=== PATIENT | female | born 1965 | race Caucasian/White ===

== ENCOUNTER 2020-03-02 10:45 | Outpatient (REF) | payer OTHER, SELFPAY ==
--- NOTE | 2020-03-02 | MM_ITS ---
EXAMINATION: MM SCREENING DIGITAL BREAST TOMOSYNTHESIS, BILATERAL CLINICAL INFORMATION: Screening. Asymptomatic. The lifetime risk of breast cancer based on the Tyrer-Cuzick Model is 8%. COMPARISON: Mammography: 02/25/2019, 02/19/2018 TECHNIQUE: Digital breast tomosynthesis is performed in both the craniocaudal and mediolateral oblique views along with computer-aided detection (CAD). Synthesized 2D images are generated from the tomosynthesis. FINDINGS: The breasts are almost entirely fatty (ACR BI-RADS breast composition Category a). There are no significant masses, abnormal calcifications, or other abnormalities. Background stromal markings are stable. No significant change from prior exams. MM/MM tomosynthesis screening BI IMPRESSION: No mammographic evidence of malignancy. ASSESSMENT: BI-RADS 1: Negative RECOMMENDATION: Routine annual mammography screening. This patient's information was entered into a reminder system with a target due date for their next mammogram.
== END 2020-03-02 10:46 | disposition home or self-care (01) ==
LOC: HO.MAMMO 10:45
PROVIDERS: PCP Internal Medicine; Visit Provider Internal Medicine
DX: Z12.31 Encounter for screening mammogram for malignant neoplasm of breast (principal)
CPT/HCPCS: 77063; 77067

== ENCOUNTER 2021-05-03 10:46 | Outpatient (REF) | payer OTHER, SELFPAY ==
--- NOTE | ~2021-05-03 | MM_ITS ---
EXAMINATION: MM SCREENING DIGITAL BREAST TOMOSYNTHESIS, BILATERAL CLINICAL INFORMATION: Screening. Asymptomatic. The lifetime risk of breast cancer based on the Tyrer-Cuzick Model is 8%. COMPARISON: Mammography: 03/02/2020, 02/25/2019, 02/19/2018 TECHNIQUE: Digital breast tomosynthesis is performed in both the craniocaudal and mediolateral oblique views along with computer-aided detection (CAD). Synthesized 2D images are generated from the tomosynthesis. FINDINGS: The breasts are almost entirely fatty (ACR BI-RADS breast composition Category a). There are no significant masses, abnormal calcifications, or other abnormalities. There are no significant changes from prior studies. No developing density. Background stromal markings are stable. The axilla are unremarkable. MM/MM tomosynthesis screening BI IMPRESSION: No mammographic evidence of malignancy. ASSESSMENT: BI-RADS 1: Negative RECOMMENDATION: Routine annual mammography screening. This patient's information was entered into a reminder system with a target due date for their next mammogram.
== END 2021-05-03 10:47 | disposition home or self-care (01) ==
LOC: HO.MAMMO 10:46
PROVIDERS: PCP Internal Medicine; Visit Provider Internal Medicine
DX: Z12.31 Encounter for screening mammogram for malignant neoplasm of breast (principal)
CPT/HCPCS: 77063; 77067

== ENCOUNTER 2021-12-02 13:16 | Day surgery (SDC) | payer OTHER, SELFPAY ==
[2021-11-27 13:17] VITALS: BMI 30.1
--- NOTE | 2021-11-29 13:58 | HO.ANESPROP2 ---
Documented by User: Khadijah Alex NP 11/29/21 13:59 HPI - Anesthesia Eval Consult details Narrative: 56yo F for Upper Endoscopy and Colonoscopy PMFSH Past Medical History Medical History HTN (hypertension) Surgical History Surgical History Hx of section Social History Social History Patient Tobacco Use Status: Never used Tobacco Are you DNR?: No Advance Directives: No Advance Directives Information Provided: Yes Recently lost weight without trying: No Nutrition Risks: No Nutritional Risk Meds Allergies Allergy/AdvReac Type Severity Reaction Status Date / Time No Known Allergies Allergy Verified 12/02/21 13:38 [No Known Allergies*] Home Medications Medication Instructions Recorded Confirmed Last Taken Type amlodipine 2.5 mg tablet 2.5 mg PO DAILY 11/27/21 11/27/21 12/01/21 History multivitamin with minerals 1 tab PO DAILY 11/27/21 11/27/21 11/25/21 History esomeprazole magnesium 40 mg 1 cap PO DAILY 12/02/21 12/02/21 12/02/21 History capsule,delayed release Exam Exam Date and Time: November 29, 2021 1358 Height,Weight and Vital Signs: Height 5 ft 3 in Weight 77.111 kg Assessment and Plan Assessment Anesthesia Assessment: Chart Reviewed Documented by User: Kori Gasca MD 12/02/21 15:05 [facility] Active Problems Active Problems: GERD Past Medical History Medical History HTN (hypertension) Family History Family history of problems with anesthesia: No Surgical History Surgical History Hx of section History of Problems with Anesthesia: No Social History Social History Patient Tobacco Use Status: Never used Tobacco Are you DNR?: No Advance Directives: No Advance Directives Information Provided: Yes Recently lost weight without trying: No Nutrition Risks: No Nutritional Risk Meds Allergies Allergy/AdvReac Type Severity Reaction Status Date / Time No Known Allergies Allergy Verified 12/02/21 13:38 [No Known Allergies*] Home Medications Medication Instructions Recorded Confirmed Last Taken Type amlodipine 2.5 mg tablet 2.5 mg PO DAILY 11/27/21 11/27/21 12/01/21 History multivitamin with minerals 1 tab PO DAILY 11/27/21 11/27/21 11/25/21 History esomeprazole magnesium 40 mg 1 cap PO DAILY 12/02/21 12/02/21 12/02/21 History capsule,delayed release Exam Height,Weight and Vital Signs: Height 5 ft 3 in Weight 77.111 kg Vital Signs Temp Pulse Resp BP Pulse Ox O2 Del Method 12/02/21 13:25 96.8 F 84 16 132/93 H 98 Room Air Airway Mallampati Class: II TM Dist: >3cm Neck ROM: Full Loose/Missing/Broken Teeth: No Heart: RRR Lungs: CTAB Assessment and Plan Assessment Anesthesia Assessment: Anesthesia Plan Discussed Final Anesthetic Review Family History of Problems with Anesthesia: No History of Problems with Anesthesia: No NPO: Yes ASA Class: II Final Preanesthetic Review: No Changes in Pt Med Stat, Meds/Allgs Chart Reviewed, Consent Obtained/Reviewed and Anes Risks/Benef Reviewed Patient Risk: Low Procedure Risk: Low Assessment/Block/Sedation in SS: Assess/Block/Sedation- Anesthetic Plan Anesthetic Plan: MAC: Disposition: Standard PACU
[2021-12-02 13:25] VITALS: BP 132/93; PULSE 84; RESP 16; TEMP 36; O2SAT 98
[2021-12-02] MEDS: Lactated Ringers 1,000 ML 100 ML IVCONT (13:47)
[2021-12-02 16:11] VITALS: BP 117/69; PULSE 74; RESP 13; TEMP 36.1; O2SAT 99
--- NOTE | 2021-12-02 16:22 | PM.OP ---
Brief Operative Note Date of Service: 12/02/21 Pre-op diagnosis: Cough, Globus, Screening Post-op diagnosis: other (GERD, Hiatal hernia, R/O Esophageal candidiasis, Colon polyps) Procedure: EGD with bx, Colonoscopy to the cecum with bx/removal of polyps Surgeon: Tobin Denton Anesthesia: MAC Was an Waste Disposal Plant Operator used for this Procedure?: No Estimated blood loss (mL): 2.0 Pathology: other (A. EG Junction at 35cm B. Esophagus 25-35cm, R/O Candidiasis C. Cecal polyp D. Polyp at 40cm) Condition: stable Disposition: PACU
[2021-12-02 16:26] VITALS: BP 131/78; PULSE 62; RESP 16; O2SAT 98
[2021-12-02 16:41] VITALS: BP 130/79; PULSE 58; RESP 16; O2SAT 98
[2021-12-02 16:56] VITALS: BP 138/75; PULSE 62; RESP 16; TEMP 37.1; O2SAT 98
--- NOTE | 2021-12-03 03:30 | OP_ITS ---
12/02/2021 SURGEON: Tobin Denton MD INDICATIONS: The patient presents for evaluation of colorectal cancer screening, personal history of tubular adenoma of the colon, chronic coughing and sense of globus. Full consent obtained from her for this, including risks of bleeding and perforation. PREOPERATIVE DIAGNOSIS: POSTOPERATIVE DIAGNOSIS: PROCEDURE PERFORMED: Esophagogastroduodenoscopy with biopsies, and colonoscopy to the cecum with biopsy and removal of polyps. ESTIMATED BLOOD LOSS: COMPLICATIONS: ANESTHESIA: Monitored anesthesia care. ASSISTANTS: SPECIMENS: PREOPERATIVE DIAGNOSES: Colorectal cancer screening, personal history of tubular adenoma of the colon, chronic coughing, globus. POSTOPERATIVE DIAGNOSES: Colorectal cancer screening, personal history of tubular adenoma of the colon, chronic coughing, globus, colon polyps, diverticulosis, internal hemorrhoids, hiatal hernia, rule out esophageal candidiasis, rule out Harvey's esophagus. DESCRIPTION OF PROCEDURE: The patient was placed in the left lateral decubitus position. The Olympus video gastroscope was passed in the posterior oropharynx and upper esophagus under direct vision. The scope was passed slowly to the distal esophagus. The gastroesophageal junction appeared at 35 cm. This area appeared slightly irregular consistent with reflux and possibly small, less than 1 cm areas of Harvey's mucosa. There was no esophagitis nor any lesions. However extending from this to 25 cm were whitish mucosal lesions that almost washed off completely with irrigation. There were no underlying mucosal abnormalities. The scope entered the stomach. There was a small hiatal hernia. The scope was advanced to the pylorus and the duodenum was cannulated to the descending portion. The duodenum including the bulb appeared normal without mass or ulceration. The scope was withdrawn back to the stomach. The gastric antrum and body appeared normal with good peristalsis. The scope was retroflexed visualizing the proximal stomach carefully which appeared normal, without any sign of mass or ulceration. The scope was straightened and withdrawn back to the esophagus. Biopsies were obtained at the EG junction at 35 cm. I then obtained multiple biopsies between 25 and 35 cm in the area of the whitish lesions. Again, there was no evidence of any underlying mucosal abnormalities. The scope was withdrawn from the patient. I was not able to get a very good look at the vocal cords, although there did appear to be some edema. She was turned around for the colonoscopy. The digital rectal exam revealed some external hemorrhoidal tissue. The Olympus video pediatric colonoscope was entered into the rectum and advanced easily to the cecum. Once in the cecum, I did identify normal-appearing cecal pouch other than an approximately 3 or 4 mm cecal polyp which was biopsied and completely removed with the cold biopsy forceps. The remainder of the cecum, including the appendiceal orifice, appeared normal. The ileocecal valve appeared normal. There was transillumination of light deep in the right lower quadrant. The scope was slowly withdrawn assessing all mucosal surfaces carefully. Preparation was excellent. At 40 cm was a 3 mm polyp, which was biopsied and completely removed with the cold biopsy forceps. I did not visualize any other polyps, colitis, nor angiodysplasia. There was a mild amount of sigmoid and descending colon diverticulosis. In the rectum, the scope was retroflexed visualizing internal hemorrhoids, but no other pathology. The rectal mucosa appeared normal. The scope was straightened and withdrawn from the patient. She tolerated both procedures well and was returned to the recovery area in stable condition. IMPRESSION: 1. Rule out esophageal candidiasis. 2. Hiatal hernia, rule out Harvey's esophagus. 3. Colon polyps. 4. Diverticulosis. 5. Internal and external hemorrhoids. PLAN: The results of the pathology will be checked. At this point, she has been using Nexium 40 mg daily for about 3 weeks. Depending upon the results of the biopsies, I may increase this to 40 mg b.i.d., as well as adding a course of Diflucan if indeed there is candidiasis, to see if that can help relieve some of her ongoing symptoms. I would recommend a repeat colonoscopy in 5 years. I did instruct her to obtain a referral for an ENT consult and to make sure that she has had a chest x-ray in regard to the chronic coughing. Further plans will be made depending upon the results of biopsies and her clinical course. If indeed it appears that she is having refractory reflux despite PPI therapy, then she may need further evaluation with pH studies and motility studies of the esophagus prior to considering surgery for the hiatal hernia. She will be seen in the office for a follow up visit. This has all been discussed with her . MD ZO Wild/JULIO CESAR / [id number] JESUS MANUEL
== END 2021-12-02 17:25 | disposition home or self-care (01) ==
PROVIDERS: PCP Internal Medicine; Visit Provider Internal Medicine
PROC: (CPT 45380; principal; 2021-12-02 14:40)
DX: Z12.11 Encounter for screening for malignant neoplasm of colon (principal); Z86.010 Personal history of colon polyps; D12.0 Benign neoplasm of cecum; K63.5 Polyp of colon; K57.30 Diverticulosis of large intestine without perforation or abscess without bleeding; K64.8 Other hemorrhoids; K64.4 Residual hemorrhoidal skin tags; K21.9 Gastro-esophageal reflux disease without esophagitis; B37.81 Candidal esophagitis; K44.9 Diaphragmatic hernia without obstruction or gangrene; I10 Essential (primary) hypertension; R05.3 Chronic cough; F45.8 Other somatoform disorders; Z79.899 Other long term (current) drug therapy
CPT/HCPCS: 45380; 43239; 88305; 88312

== ENCOUNTER 2022-04-15 10:40 | Outpatient (REF) | payer OTHER, SELFPAY ==
--- NOTE | ~2022-04-15 | FL_ITS ---
EXAMINATION: FL BARIUM SWALLOW CLINICAL INFORMATION: Chronic cough, globus sensation. Hiatal hernia. COMPARISON: None TECHNIQUE: Barium swallow examination is performed using fluoroscopic evaluation in addition to multiple fluoroscopic spot views. The patient is imaged both upright and prone and using both thick and thin sulfate along with effervescent granules. Fluoroscopy time: 3.2 minutes DAP: 27.063 Gy-cm2 Images: 65 FINDINGS: Following oral administration of thick barium, barium coated turkey and thin barium there is normal propagation of bolus from the oral cavity through the pharynx, esophagus into stomach without obstruction, narrowing or stricture. No intrinsic or extrinsic mass or compression seen. There is no retention of food in the valleculae or piriform sinuses. No laryngeal penetration or aspiration. On oral administration of barium coated tablet there is spontaneous passage from the oral cavity, pharynx, esophagus into stomach. On placing patient prone lying and oral administration of thin barium there is good distention of the entire esophagus without any intrinsic filling defect. There is a small hiatal hernia with [id number] gastroesophageal reflux. FL/FL barium swallow IMPRESSION: Mild gastroesophageal reflux with small hiatal hernia in lying position.
== END 2022-04-15 10:41 | disposition home or self-care (01) ==
LOC: HO.XRAY 10:40
PROVIDERS: Visit Provider Internal Medicine
DX: R05.3 Chronic cough (principal); R09.89 Other specified symptoms and signs involving the circulatory and respiratory systems; K21.9 Gastro-esophageal reflux disease without esophagitis; K44.9 Diaphragmatic hernia without obstruction or gangrene
CPT/HCPCS: 74220

== ENCOUNTER 2022-05-09 10:50 | Outpatient (REF) | payer OTHER, SELFPAY ==
--- NOTE | ~2022-05-09 | MM_ITS ---
EXAMINATION: MM SCREENING DIGITAL BREAST TOMOSYNTHESIS, BILATERAL CLINICAL INFORMATION: Screening. Asymptomatic. The lifetime risk of breast cancer based on the Tyrer-Cuzick Model is 8%. COMPARISON: Mammography: 05/03/2021, 03/02/2020, 02/25/2019 TECHNIQUE: Digital breast tomosynthesis is performed in both the craniocaudal and mediolateral oblique views along with computer-aided detection (CAD). Synthesized 2D images are generated from the tomosynthesis. FINDINGS: The breasts are almost entirely fatty (ACR BI-RADS breast composition Category a). Background stromal markings and fibroglandular densities are similar to prior studies. No developing density or architectural abnormality. There are no significant masses, abnormal calcifications, or other abnormalities. No significant changes. MM/MM tomosynthesis screening BI IMPRESSION: No mammographic evidence of malignancy. ASSESSMENT: BI-RADS 1: Negative RECOMMENDATION: Routine annual mammography screening. This patient's information was entered into a reminder system with a target due date for their next mammogram.
== END 2022-05-09 10:51 | disposition home or self-care (01) ==
LOC: HO.MAMMO 10:50
PROVIDERS: PCP Internal Medicine; Visit Provider Internal Medicine
DX: Z12.31 Encounter for screening mammogram for malignant neoplasm of breast (principal)
CPT/HCPCS: 77063; 77067

== ENCOUNTER 2023-01-02 15:03 | Outpatient (AMB) | payer OTHER, SELFPAY ==
--- NOTE | 2023-01-02 15:08 | MHC.OFFVIS ---
Intake Vital Signs 01/02/23 15:09 Height 5 ft 3 in Weight 156 lb BMI 27.6 BP 124/70 Blood Pressure Location Lt brachial Position Sitting Pulse 65 Pulse Oximetry (%) 99 Oxygen Delivery Method Room Air Intake Visit Reasons: Cough Certified Real Estate Appraiser Required: No Franchise Sales Representative: Franchise Sales Representative offered & declined Accompanied by: Self / Same As Patient Allergies chlorthalidone Allergy (Severe, Verified 01/02/23 15:15) low potassium Medication List - Last Reconciled 01/02/23 by Azalia Pratt LPN amlodipine 5 mg PO DAILY esomeprazole magnesium 20 mg PO DAILY multivitamin 1 tab PO DAILY multivitamin with minerals 1 tab PO DAILY HPI Cough HPI Details Elli is pleasant 57 year old female, never smoker, with underlying GERD. She was referred by her lunchroom operator for pulmonary evaluation. She reports ongoing symptoms for over a year of globus sensation, persistent throat clearing, chronic dry cough with occasional white sputum and post nasal drip. She denies any significant dyspnea, wheezing, chest tightness. Denies hemoptysis. She had an EGD performed 11/2021 and Barium swallow 03/2022 both revealed mild reflux and small hiatal hernia. ENT evaluation was negative for any laryngeal irritation from reflux. She states her symptoms are worse when laying down at night and with eating/drinking. She has trialed pantoprozole, esomeprazole and now on pepcid, with persistent symptoms. She denies any personal history of respiratory conditions. She is unsure of environmental allergies and has not had any allergy tests prior. She has trialed claritin with minimal improvement. She recently started ipratropium nasal spray, unsure of response yet. Her sisters have a history of asthma, otherwise denies any pertinent family history. She denies any occupational exposures. [facility] Medical History HTN (hypertension) Surgical History Hx of section Family History (Updated 01/01/23 @ 16:03 by Azalia Pratt LPN) Father Hypertension Heart disease Mother Hypertension Social History (Updated 01/02/23 @ 15:18 by Aazlia Pratt LPN) Patient Tobacco Use Status: Never used Tobacco Review of Systems Const Denies chills, Denies excessive sweating, Denies fever(s), Denies headache(s) and Denies night sweats Eyes Denies dry eyes, Denies irritation and Denies itchy eyes ENT Reports Normal hearing present, Denies headache(s), Denies nasal congestion and Denies nasal discharge Card Denies chest pain, Denies chest pain at rest, Denies chest pain with activity, Denies claudication, Denies leg edema, Denies dyspnea, Denies dyspnea on exertion, Denies orthopnea and Denies paroxysmal nocturnal dyspnea Resp Denies chest congestion, Denies pain on inspiration, Denies pain with cough, Denies dyspnea, Denies dyspnea on exertion, Denies stridor and Denies wheezing Musc Denies myalgias Neuro Reports Normal hearing present and Denies headache(s) Endo Denies excessive sweating Jeffrey/Lymph Denies lymphadenopathy Aller/Immun Denies itchy eyes, Denies seasonal rhinorrhea and Denies wheezing Physical Exam Vital Signs: Last Vital Signs Pulse 65 01/02/23 15:09 BP 124/70 01/02/23 15:09 Pulse Ox 99 01/02/23 15:09 Oxygen Delivery Method Room Air 01/02/23 15:09 BMI result Body Mass Index 27.6 Const General: cooperative, healthy appearing, comfortable, no acute distress, well developed and alert Orientation/consciousness: patient oriented x3 Limitations: no limitations HEENT Head: Yes normal to inspection, Yes normocephalic and Yes atraumatic Ears: hearing grossly normal bilaterally and external ears normal Eyes General: appearance normal, both eyes and all related structures Eyelids: Yes eyelids normal Sclerae: sclerae normal EOM: EOMs intact bilaterally Neck Neck: Yes normal visual inspection and Yes no lymphadenopathy Lymphatic: no lymphadenopathy noted Chest Chest palpation & inspection: normal inspection of the chest Resp Other: persistent dry cough throughout visit with lung sounds diminished, improved after duoneb Effort & Inspection: normal respiratory effort, able to speak in complete sentences, no audible wheezes, no stridor, not tachypneic, no tripod positioning and no use of accessory muscles Cardio Jugular venous distension: no JVD Rate: regular rate Rhythm: regular rhythm Skin Other: warm, dry General skin exam: no rashes or lesions noted Neuro General: patient oriented x3 Cranial nerves: Yes Normal hearing present Cognition (Neuro): normal cognition Gait exam (Neuro): Normal gait present Extrem General: Yes normal to inspection, Yes capillary refill normal, Yes no clubbing, cyanosis or edema and Yes no pedal edema Psych Appearance: grossly normal and well kempt Speech and movement: Normal speech and movement present and Clear speech present Affect: normal affect Attitude: cooperative Thought process: Normal thought process present Thought content: Normal thought content present Insight: Good insight present (Psych) Judgement: Good judgement present (Psych) Office Procedures Nebulizer Treatment Nebulizer Treatment 14315-[id number]/MDI RX initial, or Nebulizer Subsequent Treatment Office Meds albuterol sulfate 2.5 mg/3 mL (0.083 %) solution for nebulization Performing Provider: Ele Valdez NP Performing Location: [facility] Administered by: Azalia Pratt LPN on 01/02/23 15:59 Dose Route Admin Location Dispensed Lot Number Expiration Date [facility] [employer] 2.5 mg inhalation 3 mL [id number] 02/13/24 3273-3738-28 [facility] Assessment & Plan Assessment & Plan (1) Cough: Code(s): R05.9 - Cough, unspecified (2) Globus sensation: Code(s): R09.A2 - Foreign body sensation, throat (3) GERD (gastroesophageal reflux disease): Code(s): K21.9 - Gastro-esophageal reflux disease without esophagitis Plan Elli's symptoms may be multifactorial with contribution from pulmonary and allergic etiologies as well as acid reflux. She was given a nebulizer treatment in office with improvements in cough, suggestive of a possible reactive airway component. Will send for PFT, CXR and RAST to thoroughly evaluate. Discussed empirically trialing an ICS/LABA. Reviewed importance of oral hygiene. Will follow up in 4-6 weeks to review results and response to inhaler. All questions were answered and patient is in agreement of plan. Orders: Orders AMB Nebulizer Treatment 01/02/23 R05.9 - Cough, unspecified PFT pulmonary function test 01/07/23 R05.9 - Cough, unspecified Medications: New fluticasone propion-salmeterol 115-21 mcg/actuation (Advair HFA) 2 puffs inhalation Q12H 1 ea 0RF Coding Level of Care Code New Pt Level 4 (97783) Diagnoses Cough R05.9 Globus sensation R09.A2 GERD (gastroesophageal reflux disease) K21.9 CPT Codes Nebulizer Treatment - Nebulizer Treatment, initial or subsequent: [id number]/MDI RX initial, or Nebulizer Subsequent Treatment ([id number])
[2023-01-02 15:09] VITALS: BP 124/70; PULSE 65; O2SAT 99; BMI 27.6
== END 2023-01-02 16:11 | disposition home or self-care (01) ==
LOC: HO.HPSW 15:03
PROVIDERS: PCP Physician Assistant; Referring Provider Internal Medicine; Visit Provider Nurse Practitioner Family
DX: R05.9 Cough, unspecified (principal); R09.A2 Foreign body sensation, throat; K21.9 Gastro-esophageal reflux disease without esophagitis
CPT/HCPCS: 99204

== ENCOUNTER → 2023-01-02 15:03 | Outpatient (BNVA) | payer OTHER, SELFPAY | PROVIDERS: PCP Physician Assistant; Referring Provider Internal Medicine; Visit Provider Nurse Practitioner Family | DX: R05.9 Cough, unspecified (principal); R09.A2 Foreign body sensation, throat; K21.9 Gastro-esophageal reflux disease without esophagitis | CPT/HCPCS: 94640 ==

== ENCOUNTER 2023-01-16 11:29 | Outpatient (REF) | payer OTHER, SELFPAY ==
[2023-01-16 14:42] LABS: MANUAL DIFF FLAG NO
[2023-01-16 14:46] LABS: Basophils Absolute Auto 0.1 X10*3/uL (0.0-0.2); Basophils Percent Auto 1.5 % (0-2); Eosinophils Absolute Auto 0.2 X10*3/uL (0.0-0.4); Hematocrit 41.4 % (37.0-47.0); Hemoglobin 13.9 g/dl (12.0-16.0); Imm Gran Abs Auto 0.02 X10*3/uL (0.00-0.03); Imm Gran Pct Auto 0.4 % (0.0-0.4); Lymphocytes Absolute Auto 1.8 X10*3/uL (1.2-4.9); Lymphocytes Percent Auto 38.9 % (20-40); Mean Corpuscular HGB Conc 33.6 g/dl (31.0-35.0); Mean Corpuscular Hemoglobin 30.3 pg (27.0-33.0); Mean Corpuscular Volume 90.4 fL (80.0-98.0); Mean Platelet Volume 8.9 fL (9.4-12.3); Monocytes Absolute Auto 0.4 X10*3/uL (0.1-1.2); Monocytes Percent Auto 7.7 % (2-11); Neutrophils Absolute Auto 2.1 x10*3/uL (2.0-8.3); Neutrophils Percent Auto 47.5 % (45-73); Platelet Count 243 X10*3/uL (160-400); Red Blood Count 4.58 X10*6/uL (4.20-5.50); Red Cell Distribution Width 12.2 % (11.0-16.0); White Blood Count 4.5 X10*3/uL (4.8-10.8)
== END 2023-01-16 11:30 | disposition home or self-care (01) ==
LOC: HO.WFDLDS 11:29
PROVIDERS: Visit Provider Nurse Practitioner Family
DX: R05.9 Cough, unspecified (principal); Z91.09 Other allergy status, other than to drugs and biological substances
CPT/HCPCS: 36415; 82785; 85025; 86003

== ENCOUNTER 2023-02-24 08:52 | Outpatient (REF) | payer OTHER, SELFPAY ==
--- NOTE | ~2023-02-24 | XR_ITS ---
EXAMINATION: XR CHEST CLINICAL INFORMATION: Cough, unspecified. COMPARISON: None TECHNIQUE: 2 views of the chest. FINDINGS: Lines and Tubes: None. Clear lungs. No pleural effusion. No pneumothorax. Normal cardiomediastinal silhouette. XR/XR chest 2V IMPRESSION: *Clear lungs.
== END 2023-02-24 08:53 | disposition home or self-care (01) ==
LOC: HO.XRAY 08:52
PROVIDERS: Visit Provider Nurse Practitioner Family
DX: R05.9 Cough, unspecified (principal)
CPT/HCPCS: 71046

== ENCOUNTER 2023-02-26 15:50 | Outpatient (REF) | payer OTHER, SELFPAY ==
--- NOTE | 2023-02-26 16:30 | PFT_ITS ---
Flows: FEV1: 101 % of predicted at 2.57 L FVC: 93 % of predicted at 3.13 L FEV1/FVC: 82 % Bronchodilator response: Present in small to medium airways only Volumes: Total lung capacity: 112 % of predicted at 5.55 L Residual volume: 133 % of predicted at 2.19 L Slow vital capacity: 101 % of predicted at 3.36 L Expiratory reserve volume: 45 % of predicted at 0.37 L Diffusion capacity: Mildly decreased, corrects to normal after adjustment for alveolar ventilation. Impression: No obstructive or restrictive ventilatory defect. Increased residual volume suggests air trapping. Decreased expiratory reserve volume suggests extrathoracic restriction likely secondary to abdominal obesity. MTDD
== END 2023-02-26 15:51 | disposition home or self-care (01) ==
LOC: HO.RESP 15:50
PROVIDERS: PCP Physician Assistant; Visit Provider Nurse Practitioner Family
DX: R05.9 Cough, unspecified (principal)
CPT/HCPCS: 94010; 94727; 94729

== ENCOUNTER → 2023-02-26 16:30 | Outpatient (BNV) | payer OTHER, SELFPAY | PROVIDERS: PCP Physician Assistant; Visit Provider Internal Medicine Pulmonary Disease | DX: R05.9 Cough, unspecified (principal) | CPT/HCPCS: 94060; 94727; 94729 ==

== ENCOUNTER 2023-05-15 10:51 | Outpatient (REF) | payer OTHER, SELFPAY | END 2023-05-15 10:52 | disposition home or self-care (01) | LOC: HO.MAMMO 10:51 | PROVIDERS: PCP Physician Assistant; Visit Provider Internal Medicine | DX: Z12.31 Encounter for screening mammogram for malignant neoplasm of breast (principal) | CPT/HCPCS: 77063; 77067 ==

== ENCOUNTER → 2023-05-15 11:00 | Outpatient (BNV) | payer OTHER, SELFPAY | PROVIDERS: PCP Physician Assistant; Visit Provider Radiology Diagnostic Radiology | DX: Z12.31 Encounter for screening mammogram for malignant neoplasm of breast (principal) | CPT/HCPCS: 77063; 77067 ==

== ENCOUNTER 2024-05-20 11:43 | Outpatient (REF) | payer BC, SELFPAY ==
--- OUTSIDE RECORDS SUMMARY | 2024-05-20 13:39 | XMS_ITS ---
Author Organization [facility] Address [address] [place] [id number] Care Team Providers Care Telephone Operator Chief Name Role Phone Mery Blakely Primary Care Provider Unav ailTobin Mota [phone] REASON FOR VISIT Patient presents today for acid reflux Encounters Encounter Location Date Provider Diagnosis [facility] [address] [place] [id number] 04/24/2023 Tobin Denton Plan Of Treatment No Information Progress Notes * ANTONIO ABRAMSLOB: 4 (59 yo F)Acc No.[id number]:04/24/2023 Progress Notes Patient:KAUSHAL VERONICA Provider:?Tobin Denton MD :[id number]???Age:58 Y???Sex:Female D ate:04/24/2023 Address:[address] , [id number] Pcp:Lindsay Jensen Subjective: * Chief Complaints: * ???1. Patient presents today for acid reflux. * Medical History:? Objective: * Vitals:? Assessment: Plan: * Treatment: * * The named appointment provid er may or may not be the originator of this progress note, and it is not deemed complete until electronically signed by the appointment provider. Sign off status: Pending * Provider:?Tobin Denton MD Date:? 024 Generated for Martell felix/Chris/eTransmitting on:?05/20/2024 01:38 PM EST
--- OUTSIDE RECORDS SUMMARY | 2024-05-20 13:39 | XMS_ITS ---
Author Organization [facility] Address [address] [place] [id number] Care Team Providers Care Employee Relation Manager Name Role Phone Mery Blakely Primary Care Provider Unav ailable Tobin Denton Unavailable [phone] REASON FOR VISIT Patient presents today for reflux Problems Problem Type SNOMED Code ICD Code Onset Dates Problem Status W/U Status Risk Notes Problem 037996993 Abdominal bloating (R14.0) Active confirmed Problem 164483137 Globus sensation (R09.A2) Active confirmed Problem 31566886 Constipation, unspecified constipation type (K59.00) Active confirmed Encounters Encounter Location Date Provider Diagnosis [facility] [address] [place] [phone] 02/13/2023 Tobin Denton Abdominal bloating R 14.0 ; Gastroesophageal reflux disease without esophagitis K21.9 ; Chronic cough R05.3 ; Globus sensation R09.A2 and Constipation, unspecified constipation type K59.00 Assessments Encounter Date Diagnosis (ICD Code) Assessment Notes Treatment Notes Treatment Clinical Notes Section Notes 02/13/2023 Abdominal bloating (ICD-10 - R14.0) 02/13/2023 Gastroesophageal reflux disease without esophagitis (ICD-10 - K21.9) Stop Esomeprazole and we will start a high dose Pepcid(Famotidin e) Rx. for the heartburn and to see if that decreases some of the bloating and gassiness. Resume Esopmepraozle if the Famotidine isn't working for the heartburn. 02/13/2023 Chronic cough (ICD-10 - R05.3) I want you to see [facility] for the cough, shortness of breath, etc 02/13/2023 Globus sensation (ICD-10 - R09.A2) 02/13/2023 Constipation, unspecified constipation type (ICD-10 - K59.00) Start a daily probiotic, continue the Metamucil,and add a dose of Miralax daily to help with the BM's to see if that cuts down the bloating and makes the BM's more regular. Plan Of Treatment Treatment Notes Assessment Notes Gastroesophageal reflux dise ase without esophagitis Stop Esomeprazole and we will start a high dose Pepcid(Famotidine) Rx. for the heartburn and to see if that decreases some of the bloating and gassiness. Resume Esopmepraozle if the Famotidine isn't working for the heartburn. Chronic cough I want you to see [facility] for the cough, shortness of breath, etc Constipation, unspecified constipation t ype Start a daily probiotic, continue the Metamucil,and add a dose of Miralax daily to help with the BM's to see if that cuts down the bloating and makes the BM's more regular. Next Appt Details Follow Up: 3 Months, Reason: Progress Notes * ANGELINA ABRAMSNISHANT: 4 (59 yo F)Acc No.[id number]:02/13/2023 Progress Notes Patient:?KAUSHAL ABRAMS Provider:?Tobin Denton MD :1965???Age:58 Y???Sex:Female D ate:02/13/2023 Address:[address] [place] [address] , [place] Pcp:Lindsay Jensen Subjective: * Chief Complaints: * ???1. Patient presents today for reflux. * Medical History:? Objective: * Vitals:? Assessment: * Assessment: 1.?Abdominal bloating - R14. 0 (Primary)???2.?Gastroesophageal reflux disease without esophagitis - K21.9???3.?Chronic cough - R05.3???4.?Globus sensation - R09.A2???5.?Constipation, unspecified constipation type - K59.00??? Plan: * Treatment: 2.?Chronic cough? Notes: I want you to see [facility] for the cough, shortness of breath, etc?? 3.?Constipation, unspecified constipation type? Notes: Start a daily probiotic, continue the Metamucil,and add a dose of Miralax daily to help with the BM's to see if that cuts down the bloating and makes the BM's more regular.?? * Follow Up:?3 Months * * The named appointment provid er may or may not be the originator of this progress note, and it is not deemed complete until electronically signed by the appointment provider. Sign off status: Pending * Provider:?Tobin Denton MD Date:? 023 Generated for Martell felix/Chris/Willy on:?05/20/2024 01:38 PM EST
--- OUTSIDE RECORDS SUMMARY | 2024-05-20 13:39 | XMS_ITS | Patient Health Record ---
Author Organization [facility] Address [address] [place] [address] Care Team Providers Care Assistant Plant Controller Name Role Phone Mery Blakely Primary Care Provider Unav ailable Tobin Denton Unavailable [phone] Allergies No Known Allergies Reason For Referral No Information Medications Medication SIG (Take, Route, Frequency, Duration) Notes Start Date End Date Status Vitamin E Active Multi Vitamin/Minerals Orally Active amLODIPine Besylate 2.5 MG Oral for 90 Active Esomeprazole Magnesium 20 MG TAKE ONE CAPSULE BY MOUTH EVERY DAY Oral Active Immunizations Vaccine Route Administration Date Status Comme nts Influenza Unknown 01/14/2021 Administered Influenza Unknown 01/01/2022 Administered Problems Problem Type SNOMED Code ICD Code Onset Dates Problem Status W/U Status Risk Notes Problem [id number] Encounter for screening for malignant neoplasm of colon (Z12.11) Active confirmed Problem 673504248 Abdominal bloati ng (R14.0) Active confirmed Problem History of polyp of colon (situation) (297565167) Personal history of colonic polyps (Z86.010) Active confirmed Problem Screening for malignant neoplasm of rectum (607741812) Encounter for screening for malignant neoplasm of rectum (Z12.12) Active confirmed Problem History of gastrointestinal disease (993849201) H/O gastroesophageal reflux (GERD) (Z87.19) Active confirmed Problem 410122522 Gastroesophageal reflux disease without esophagitis (K21.9) Active confirmed Problem 19414945 Preprocedural examination (Z01.818) Active confirmed Problem 38750755 Hiatal hernia (K44.9) Active confirmed Problem 31108903 Constipation, unspecified constipation type (K59.00) Active confirmed Problem Gastroesophageal reflux disease (114252924) GERD (gastroesophageal reflux disease) (K21.9) Active confirmed Problem 705444748 Abdominal pain, generalized (R10.84) Active confirmed Problem 98551300 Abdominal pain, lower (R10.30) Active confirmed Problem Globus sensation (639846231) Globus sensation (F45.8) Active confirmed Problem Diverticulosis of colon (229738502) Diverticulosis of colon (K57.30) Active confirmed Problem 441121639 Globus sensation (R09.89) Active confirmed Problem 32597221 Chronic cough (R05.3) Active confirmed Problem Candidiasis of the esophagus (04380545) Teresa esophagitis (B37.81) Active confirmed Problem 196528607 Globus sensation (R09.A2) Active confirmed Vital Signs Blood pressure diastolic 00 mm Hg 08/28/2023 Height 63 in 08/28/2023 Blood pressure systolic 00 mm Hg 08/28/2023 Weight 157 lbs 08/28/2023 BMI 27.81 kg/m2 08/28/2023 Encounters Encounter Location Date Provider Diagnosis [facility] [address] [place] [address] 08/28/2023 Tobin Denton Personal history of colonic polyps Z86.010 ; GERD (gastroesophageal reflux disease) K21.9 ; Globus sensation F45.8 and Chronic cough R05.3 Assessments Encounter Date Diagnosis (ICD Code) Assessment Notes Treatment Notes Treatment Clinical Notes Section Notes 08/28/2023 Personal history of colonic polyps (ICD-10 - Z86.010) Repeat colonoscopy in 2026 Overall, Tenisha continues to appear quite well from a clinical standpoint. While her continued symptoms of the coughing and globus sensation remain problematic from a symptomatic standpoint, we did review that there does not appear to be any worrisome underlying process causing this. While some of the symptoms might be in relation to her reflux, I don't think that is the main contributing factor based on just a minimal hiatal hernia, symptomatic improvement on her PPI in relation to the heartburn, and the upper endoscopy and barium swallow not revealing any significant pathology in the esophagus or upper GI tract in general. I did advise her to certainly continue her PPI as it is working well for the heartburn symptoms. I don't think another upper endoscopy would be helpful given the results from 2021. She was treated for some yeast in the esophagus after that endoscopy but that did not improve any of her symptoms. I suspect that was more of a colonization with Teresa as opposed to an actual infection. Given her history of waking up frequently at night with coughing I did advise her to speak with you about possibly having a sleep study to rule out underlying sleep apnea that might be contributing to her symptoms. We also reviewed that obviously weight loss and eating carefully with dietary discretion could make a difference for her as well. We did review that stress could very well be contributing to this as she gives a history of her symptoms completely resolving when she is on any type of vacation. We did review that she should have a followup colonoscopy for surveillance in 2026. At this point, if things remain stable, I advised Tenisha to see me on p.r.n. basis. Both she and I don't think she needs any further evaluation or treatment, other than perhaps considering a sleep study to rule out any contributing sleep apnea. Hopefully, if things remain well, I will see her in 2026 for the next colonoscopy. However, I did advise her to certainly call if she has any problems or questions I can be of assistance with in the interim. Tenisha was comfortable with this plan. Thank you again for allowing me to participate in Tenisha's care. I shall continue to keep you advised of her progress. 08/28/2023 GERD (gastroesopha geal reflux disease) (ICD-10 - K21.9) Overall, Tenisha continues to appear quite well from a clinical standpoint. While her continued symptoms of the coughing and globus sensation remain problematic from a symptomatic standpoint, we did review that there does not appear to be any worrisome underlying process causing this. While some of the symptoms might be in relation to her reflux, I don't think that is the main contributing factor based on just a minimal hiatal hernia, symptomatic improvement on her PPI in relation to the heartburn, and the upper endoscopy and barium swallow not revealing any significant pathology in the esophagus or upper GI tract in general. I did advise her to certainly continue her PPI as it is working well for the heartburn symptoms. I don't think another upper endoscopy would be helpful given the results from 2021. She was treated for some yeast in the esophagus after that endoscopy but that did not improve any of her symptoms. I suspect that was more of a colonization with Teresa as opposed to an actual infection. Given her history of waking up frequently at night with coughing I did advise her to speak with you about possibly having a sleep study to rule out underlying sleep apnea that might be contributing to her symptoms. We also reviewed that obviously weight loss and eating carefully with dietary discretion could make a difference for her as well. We did review that stress could very well be contributing to this as she gives a history of her symptoms completely resolving when she is on any type of vacation. We did review that she should have a followup colonoscopy for surveillance in 2026. At this point, if things remain stable, I advised Tenisha to see me on p.r.n. basis. Both she and I don't think she needs any further evaluation or treatment, other than perhaps considering a sleep study to rule out any contributing sleep apnea. Hopefully, if things remain well, I will see her in 2026 for the next colonoscopy. However, I did advise her to certainly call if she has any problems or questions I can be of assistance with in the interim. Tenisha was comfortable with this plan. Thank you again for allowing me to participate in Tenisha's care. I shall continue to keep you advised of her progress. 08/28/2023 Globus sensation (ICD-10 - F45.8) Overall, Tenisha continues to appear quite well from a clinical standpoint. While her continued symptoms of the coughing and globus sensation remain problematic from a symptomatic standpoint, we did review that there does not appear to be any worrisome underlying process causing this. While some of the symptoms might be in relation to her reflux, I don't think that is the main contributing factor based on just a minimal hiatal hernia, symptomatic improvement on her PPI in relation to the heartburn, and the upper endoscopy and barium swallow not revealing any significant pathology in the esophagus or upper GI tract in general. I did advise her to certainly continue her PPI as it is working well for the heartburn symptoms. I don't think another upper endoscopy would be helpful given the results from 2021. She was treated for some yeast in the esophagus after that endoscopy but that did not improve any of her symptoms. I suspect that was more of a colonization with Teresa as opposed to an actual infection. Given her history of waking up frequently at night with coughing I did advise her to speak with you about possibly having a sleep study to rule out underlying sleep apnea that might be contributing to her symptoms. We also reviewed that obviously weight loss and eating carefully with dietary discretion could make a difference for her as well. We did review that stress could very well be contributing to this as she gives a history of her symptoms completely resolving when she is on any type of vacation. We did review that she should have a followup colonoscopy for surveillance in 2026. At this point, if things remain stable, I advised Tenisha to see me on p.r.n. basis. Both she and I don't think she needs any further evaluation or treatment, other than perhaps considering a sleep study to rule out any contributing sleep apnea. Hopefully, if things remain well, I will see her in 2026 for the next colonoscopy. However, I did advise her to certainly call if she has any problems or questions I can be of assistance with in the interim. Tenisha was comfortable with this plan. Thank you again for allowing me to participate in Tenisha's care. I shall continue to keep you advised of her progress. 08/28/2023 Chronic cough (ICD-10 - R05.3) Speak with your PCP or Dr. Ybarra about a possible sleep study. Overall, Tenisha continues to appear quite well from a clinical standpoint. While her continued symptoms of the coughing and globus sensation remain problematic from a symptomatic standpoint, we did review that there does not appear to be any worrisome underlying process causing this. While some of the symptoms might be in relation to her reflux, I don't think that is the main contributing factor based on just a minimal hiatal hernia, symptomatic improvement on her PPI in relation to the heartburn, and the upper endoscopy and barium swallow not revealing any significant pathology in the esophagus or upper GI tract in general. I did advise her to certainly continue her PPI as it is working well for the heartburn symptoms. I don't think another upper endoscopy would be helpful given the results from 2021. She was treated for some yeast in the esophagus after that endoscopy but that did not improve any of her symptoms. I suspect that was more of a colonization with Teresa as opposed to an actual infection. Given her history of waking up frequently at night with coughing I did advise her to speak with you about possibly having a sleep study to rule out underlying sleep apnea that might be contributing to her symptoms. We also reviewed that obviously weight loss and eating carefully with dietary discretion could make a difference for her as well. We did review that stress could very well be contributing to this as she gives a history of her symptoms completely resolving when she is on any type of vacation. We did review that she should have a followup colonoscopy for surveillance in 2026. At this point, if things remain stable, I advised Tenisha to see me on p.r.n. basis. Both she and I don't think she needs any further evaluation or treatment, other than perhaps considering a sleep study to rule out any contributing sleep apnea. Hopefully, if things remain well, I will see her in 2026 for the next colonoscopy. However, I did advise her to certainly call if she has any problems or questions I can be of assistance with in the interim. Tenisha was comfortable with this plan. Thank you again for allowing me to participate in Tenisha's care. I shall continue to keep you advised of her progress. Plan Of Treatment Pending Test Test Name Order Date LIVER PROFILE 12/18/2022 CRP 12/18/2022 CBC w DIFF 12/18/2022 SED RATE (ESR) 12/18/2022 CELIAC PANEL #10 12/18/2022 XR BARIUM SWALLOW-ESOPHAGUS 04/11/2022 TSH reflex Free T4 12/18/2022 US abdomen complete 12/18/2022 US pelvic complete 12/18/2022 Future Test Test Name Order Date COLONOSCOPY 07/18/2015 UPPER GI ENDOSCOPY 09/06/2021 COLONOSCOPY 09/06/2021 Insurance Providers Payer Name Payer Address Payer Phone Subscriber Number Group Number Insured Name Patient Relationship to Insured Coverage Start Date Coverage End Date [facility] [address] [place] [phone] [id number] JOSE ALBERTO KAUSHAL Self - patient is the insured Medical (General) History Medical History History ICD Code Denies [place],DM,CVA,Lung disease,renal dise ase HTN Screening colonoscopies in and in November of 2021 with removal of a small tubular adenoma on each occasion EGD in November of 2021--sm all hiatal hernia, esophageal candidiasis, and mild reflux with biopsies negative for Harvey's esophagus. The candidiasis was treated with a course of Diflucan but without any improvement in her symptoms. Chronic globus, coughing, an d throat clearing in 2021 and 2022---seen by Dr. Dubois-negative fiberoptic exam of the oropharynx in his office. Seen by pulmonology and they did not think her coughing was in relation to any underlying pulmonary disease based on their workup. Surgical History Surgery Date(Month/Year) 2001
--- OUTSIDE RECORDS SUMMARY | 2024-05-20 13:39 | XMS_ITS ---
Author Organization [facility] Address [address] [place] [phone] Care Team Providers Care Copy Editor Name Role Phone Mery Blakely Primary Care Provider Unav ailable Tobin Denton Brady [phone] Allergies No Known Allergies REASON FOR VISIT Patient presents today for acid reflux Medications Medication SIG (Take, Route, Frequency, Duration) Notes Start Date End Date Status Vitamin E Active Multi Vitamin/Minerals Orally Active amLODIPine Besylate 2.5 MG Oral for 90 Active Esomeprazole Magnesium 20 MG TAKE ONE CAPSULE BY MOUTH EVERY DAY Oral Active Vital Signs Blood pressure systolic 00 mm Hg 08/28/19 24 Blood pressure diastolic 00 mm Hg 024 Height 63 in 08/28/2023 Weight 157 lbs 08/28/2023 BMI 27.81 kg/m2 08/28/2023 Encounters Encounter Location Date Provider Diagnosis [facility] [address] [place] [phone] 08/28/2023 Tobin Denton Personal history of colonic [...] advised of her progress. Plan Of Treatment Medication Medication Name Sig Start Date Stop Date Notes Esomeprazole Magnesium 20 MG TAKE ONE CA PSULE BY MOUTH EVERY DAY Oral Treatment Notes Assessment Notes Personal history of colonic polyps Repea t colonoscopy in 2026 Chronic cough Speak with your PCP or Dr. Ybarra about a possible sleep study. Next Appt Details Follow Up: prn, Reason: Progress Notes * ANTONIO ABRAMSADOB: 4 (58 yo F)Acc No.[id number]:08/28/2023 Progress Notes Patient:?KAUSHAL ABRAMS Provider:?Tobin Denton MD :1965???Age:58 Y???Sex:Female D ate:08/28/2023 Address:[address] [place] [address] , [facility], [id number] Pcp:Lindsay Jensen Subjective: * Chief Complaints: * ???Patient presents today fo r acid reflux * HPI: ???incontinence:? I saw Tenisha in followup today in order to her chronic gastroesophageal reflux, chronic coughing and globus sensation, constipation, personal history of tubular adenomas of the colon, and discussion of colorectal cancer screening. ?Since I last saw Tenisha in December of 2022 she reports that things have been status quo in regard to her chronic GI complaints. When I saw her in December we did switch her from her PPI to a course of Pepcid to see if that would help cut down her bloating. However, she had to go back on her PPI due to increased reflux and heartburn symptoms. She doesn't think being on the H2 dominic instead of the PPI made much of a difference for her in regard to her bloating and abdominal discomfort. She is presently using one Esomeprazole daily with good relief of her heartburn symptoms at this point. She denies any anorexia, dysphagia, early satiety, nausea, or vomiting. Her bowel movements remain somewhat irregular but she denies any signs of bleeding. She denies any significant abdominal pain, jaundice, nor has there been any weight loss since she was here in December. ?Her main issue remains that of her coughing, particularly at night that wakes her up a lot. She was seen by the building maintenance repairer at [facility]. She describes a workup with pulmonary function studies, allergy testing, and chest x-ray that thus far have been nonrevealing. She has also been seen by her ENT physician who she reports does not have any definitive thoughts regarding the coughing either. ?She does describe waking up frequently at night due to the coughing. She describes that she drinks a lot of water during the day to help with her mucous such that she doesn't have to cough. She has tried some [id number]-[id number] allergy medicine but without improvement. ?She did have an abdominal and pelvic ultrasound in December for evaluation of her abdominal bloating and the studies did not reveal any significant or worrisome findings. The studies did reveal a fatty liver and some benign and stable ovarian cysts. She also had a barium swallow which revealed only some mild reflux and a small hiatal hernia, but no sign of any Zenker's diverticulum or any other problems that would account for her coughing. There was no sign of any aspiration. ?Interestingly, Tenisha does describe that her symptoms, including the coughing and sleep disturbances, completely resolve when she is on any type of vacation wether it be at home or away. She does think that stress plays a role in her symptoms. * ROS:?General/Constitutional:?Change in appetite?denies.?Chills?denies.?Fatigue?denies.?Ophthalmologic:?Comments?all negative.?ENT:?Comments?all negative.?Respiratory:?hemoptysis?denies.?Cough?admits.?Cardiovascular:?Chest pain?denies.?Orthopnea?denies.?Gastrointestinal:?Comments?See HPI for details.?Genitourinary:?Hematuria?denies.?Dysuria?denies.?Musculoskeletal:?Painful joints?denies.?Weakness?denies.?Skin:?Itching?denies.?Rash?denies.?Neurologic:?Headache?denies.?Seizures?denies.?Psychiatric:?Comments?all negative.? * Medical History:? * Surgical History:? 2002 * Hospitalization/Major Diagno stic Procedure:?No Hospitalization History. * Family History:?Father: dece ased, diagnosed with HTN (hypertension), Heart disease.?Mother: , diagnosed with HTN (hypertension).? No family history of colorectal cancer. * Social History:?Tobacco Use:?Tobacco Use/Smoking?Are you a: nonsmoker.?Drugs/Alcohol:?Alcohol Screen?Points: 2, Interpretation: Negative.?Miscellaneous:?Marital status: . 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 ???Nonsmoker. No significant alcohol intake. * Medications:?TakingVitamin E Multi Vitamin/Minerals Tablet Orally amLODIPine Besylate 2.5 MG Tablet Oral Esomeprazole Magnesium 20 MG Capsule Delayed Release TAKE ONE CAPSULE BY MOUTH EVERY DAY Oral Taking Vitamin E Taking Multi Vitamin/Minerals Tablet Orally Taking amLODIPine Besylate 2.5 MG Tablet Oral Taking Esomeprazole Magnesium 20 MG Capsule Delayed Release TAKE ONE CAPSULE BY MOUTH EVERY DAY Oral DiscontinuedFamotidine 40 MG Tablet 1 Orally Twice a dayMedication List reviewed and reconciled with the patientDiscontinued Famotidine 40 MG Tablet 1 Orally Twice a dayMedication List reviewed and reconciled with the patient * Allergies:?N.K.D.A.yes[Aller gies Verified] Objective: * Vitals:?Wt: 157 lbs, Ht: 63 in, BMI:27.81 Index, BP: 00/00 mm Hg. * Examination: ???General Examination: ?GENERAL APPEARANCE:?pleasant, well nourished, well developed, in no acute distress.?EYES:?sclera non-icteric.?ORAL CAVITY:?mucosa moist.?NECK/THYROID:?no cervical lymphadenopathy, neck supple.?SKIN:?nonjaundiced, no spider angiomata.?HEART:?S1, S2 normal.?LUNGS:?clear to auscultation bilaterally.?ABDOMEN:?normal bowel sounds, no guarding or rigidity, no guarding or rigidity, no masses palpable, soft, nontender, nondistended.?EXTREMITIES:?no edema.?NEUROLOGIC:?alert and oriented.? Assessment: * Assessment: 1.?GERD (gastroesophageal re flux disease) - K21.9 (Primary)?2.?Personal history of colonic polyps - Z86.010?3.?Globus sensation - F45.8?4.?Chronic cough - R05.3? Overall, Tenisha continues to appear quite well [...] to keep you advised of her progress. Plan: * Treatment: 2.?Chronic cough? Notes: Speak with your PCP or Dr. Ybarra about a possible sleep study.?? 3.?Others? Continue Esomeprazole Magnesium Capsule Delayed Release, 20 MG, TAKE ONE CAPSULE BY MOUTH EVERY DAY, Oral.?? * Procedure Codes:?3017F COLOR ECTAL CA SCREEN DOC [id number] TOBACCO [id number] DOC RSN FOR NOT SCREEN/REC F/U HBP * Preventive Medicine:? ??Counseling:?Care goal follow-up plan:?Above Normal BMI Follow-up?Giving encouragement to exercise,?BMI management provided?Yes.? * Follow Up:?prn * * Sign off status: Completed true * Provider:?Tobin Denton MD Date:? 024 Generated for Auryi isidro/Chris/eTransmitting on:?05/20/2024 01:38 PM EST History and Physical Notes * HPI (History of Present Illness) Category Sub-Category Detail Notes Category Not es incontinence I saw Tenisha in followup today in order to her chronic gastroesophageal reflux, chronic coughing and globus sensation, constipation, personal history of tubular adenomas of the colon, and discussion of colorectal cancer screening. Since I last saw Tenisha in December of 2022 she reports that things have been status quo in regard to her chronic GI complaints. When I saw her in December we did switch her from her PPI to a course of Pepcid to see if that would help cut down her bloating. However, she had to go back on her PPI due to increased reflux and heartburn symptoms. She doesn't think being on the H2 dominic instead of the PPI made much of a difference for her in regard to her bloating and abdominal discomfort. She is presently using one Esomeprazole daily with good relief of her heartburn symptoms at this point. She denies any anorexia, dysphagia, early satiety, nausea, or vomiting. Her bowel movements remain somewhat irregular but she denies any signs of bleeding. She denies any significant abdominal pain, jaundice, nor has there been any weight loss since she was here in December. Her main issue remains that of her coughing, particularly at night that wakes her up a lot. She was seen by the building maintenance repairer at [facility]. She describes a workup with pulmonary function studies, allergy testing, and chest x-ray that thus far have been nonrevealing. She has also been seen by her ENT physician who she reports does not have any definitive thoughts regarding the coughing either. She does describe waking up frequently at night due to the coughing. She describes that she drinks a lot of water during the day to help with her mucous such that she doesn't have to cough. She has tried some [id number] allergy medicine but without improvement. She did have an abdominal and pelvic ultrasound in December for evaluation of her abdominal bloating and the studies did not reveal any significant or worrisome findings. The studies did reveal a fatty liver and some benign and stable ovarian cysts. She also had a barium swallow which revealed only some mild reflux and a small hiatal hernia, but no sign of any Zenker's diverticulum or any other problems that would account for her coughing. There was no sign of any aspiration. Interestingly, Tenisha does describe that her symptoms, including the coughing and sleep disturbances, completely resolve when she is on any type of vacation wether it be at home or away. She does think that stress plays a role in her symptoms. Examination Category Sub-Category Detail Notes Category Not es General Examination GENERAL APPEARANCE: pleasant , well nourished, well developed, in no acute distress HEAD: EYES: sclera non-icteric EARS: NOSE: THROAT: NECK/THYROID: no cervical lymphade nopathy, neck supple HEART: S1, S2 normal CHEST: LUNGS: clear to auscultatio n bilaterally ABDOMEN: normal bowel sounds, no guarding or rigidity, no guarding or rigidity, no masses palpable, soft, nontender, nondistended NEUROLOGIC: alert and oriented SKIN: nonjaundiced, no spi marco angiomata EXTREMITIES: no edema PERIPHERAL PULSES: BACK: BREASTS: MUSCULOSKELETAL: MALE GENITOURINARY: LYMPH NODES: RECTAL EXAM: FEMALE GENITOURINARY: ORAL CAVITY: mucosa moist
== END 2024-05-20 11:44 | disposition home or self-care (01) ==
LOC: HO.MAMMO 11:43
PROVIDERS: PCP Internal Medicine; Visit Provider Internal Medicine
DX: Z12.31 Encounter for screening mammogram for malignant neoplasm of breast (principal)
CPT/HCPCS: 77063; 77067

== ENCOUNTER → 2024-05-20 12:00 | Outpatient (BNV) | payer BC, SELFPAY | PROVIDERS: PCP Internal Medicine; Visit Provider Internal Medicine | DX: Z12.31 Encounter for screening mammogram for malignant neoplasm of breast (principal) | CPT/HCPCS: 77063; 77067 ==